=== PATIENT | female | born 1980 | race Caucasian/White ===

== ENCOUNTER 2020-02-10 11:26 | Emergency (ER) | payer SELFPAY ==
[~2020-02-10] VITALS: Ht 167.6 cm; Wt 86.2 kg
[~2020-02-10 11:26] MED LIST: CYCL10 PO; Norco 5-325 Ta1 EACH PO
[2020-02-10] MEDS ORDERED: LAMOTRIGINE100 M1 PO (12:10)
[2020-02-10] MEDS ORDERED: Sucralfate1 GM PO (12:57)
== END 2020-02-10 13:06 | disposition home or self-care (01) ==
LOC: ER 11:26
DX: S60.221A Contusion of right hand, initial encounter (principal); R09.89 Other specified symptoms and signs involving the circulatory and respiratory systems; F17.200 Nicotine dependence, unspecified, uncomplicated; Z87.828 Personal history of other (healed) physical injury and trauma; Y04.0XXA Assault by unarmed brawl or fight, initial encounter
CPT/HCPCS: 70360; 71045; 73130; 99283-25